=== PATIENT | female | born 1960 | race Caucasian/White ===

== ENCOUNTER → 2016-10-08 | Outpatient (CLI) | payer BC ==
--- NOTE | ~2016-10-08 | ENPV ---
Vascular Lower Extremities DVT Study Procedure Demographics Patient Name CHANTAL KEMP Date of Study 10/08/2016 Patient Number [id number] Gender Female Date of 1960 Age 56 Visit Number [id number] Height Accession Number [id number] Weight Room Number BSA BMI Referring Marv Gerardo Dena Whitney MD Physician Physician Physician Ordering Physician Painter [facility] Case Coordinator Juliana Palm [facility] Conclusions Summary Negative for DVT in the right lower extremity Procedure Type of Study: Veins:Lower Extremities DVT Study, Lower Extremity Right. Patient Status:Routine. Study Location:Inpatient Portable. Technical Quality:Good visualization. Velocities are measured in cm/s ; Diameters are measured in cm Right Lower Extremities DVT Study Measurements Right 2D and Doppler Measurements + + + + +------+------+ + !Location !Visualized!Compressibility!Thrombosis!Signal!Reflux!Reflux ! ! ! ! ! ! ! !(sec) ! + + + + +------+------+ + !GSV Thigh !Yes !Yes !None !Phasic!No ! ! + + + + +------+------+ + !Common !Yes !Yes !None !Phasic!No ! ! !Femoral ! ! ! ! ! ! ! + + + + +------+------+ + !Prox !Yes !Yes !None !Phasic!No ! ! !Femoral ! ! ! ! ! ! ! + + + + +------+------+ + !Mid Femoral!Yes !Yes !None !Phasic!No ! ! + + + + +------+------+ + !Dist !Yes !Yes !None !Phasic!No ! ! !Femoral ! ! ! ! ! ! ! + + + + +------+------+ + !Popliteal !Yes !Yes !None !Phasic!No ! ! + + + + +------+------+ + !Gastroc !Yes !Yes !None !Phasic!No ! ! + + + + +------+------+ + !PTV !Yes !Yes !None !Phasic!No ! ! + + + + +------+------+ + !Peroneal !Yes !Yes !None !Phasic!No ! ! + + + + +------+------+ + Left Lower Extremities DVT Study Measurements Left 2D and Doppler Measurements + + + + +------+------+ + !Location !Visualized!Compressibility!Thrombosis!Signal!Reflux!Reflux ! ! ! ! ! ! ! !(sec) ! + + + + +------+------+ + !Common !Yes !Yes !None ! ! ! ! !Femoral ! ! ! ! ! ! ! + + + + +------+------+ + Impressions Right Impression Negative for DVT in the right lower extremity Signature dtt: MARILOU COOLEY dtflavio: 10/08/16 1555 Physician Self Edit
== END | disposition disaster alternative care site (69) ==
LOC: GCAR 15:30
DX: M79.669 Pain in unspecified lower leg (principal)